=== PATIENT | female | born 2000 | race Caucasian/White ===

== ENCOUNTER 2022-06-01 13:48 | Outpatient (CLI) | payer BC, SELFPAY ==
--- NOTE | 2022-06-01 14:00 | CRLHL7_ITS ---
For Patients: As a result of the Century Cures Act, medical imaging exams and procedure reports are released immediately into your electronic medical record. You may view this report before your referring provider. If you have questions, please contact your health care provider. INDICATION: Evaluate for size and dates TECHNIQUE: Ultrasound OB pelvis transvaginal. Real time quan scale imaging of the pelvis was performed. COMPARISON: None FINDINGS: Sonographic imaging demonstrates a single living intrauterine gestation. The embryo demonstrates a regular cardiac rate measuring 161 beats per minute. The embryo`s crown rump length measurement of 1.9 cm corresponds to a gestational age of 8 weeks 3 days with a sonographic due date of 01/08/23. There is a normal appearing yolk sac. There are no gross abnormalities noted within the embryo at this early state of development. The placenta has not yet developed. The gestational sac has a normal appearance. Small perigestational hemorrhage. The amount of fluid within the sac appears appropriate for gestational age. The cervix is closed. The myometrium appears normal. The ovaries are of normal size. Normal left corpus luteal cyst there are no suspicious fluid collections noted in the cul-de-sac. IMPRESSION: Viable intrauterine . Gestational age calculated at 8 weeks 3 days with a sonographic due date of 01/08/2023. Small subchorionic hemorrhage. Dictated by Daniel Rashid MD @ 06/02/2022 12:13:03 PM (Electronically Signed)
== END 2022-06-01 13:49 | disposition home or self-care (01) ==
PROVIDERS: Visit Provider Registered Nurse
DX: Z34.81 Encounter for supervision of other normal pregnancy, first trimester (principal); Z3A.08 8 weeks gestation of pregnancy; Z36.87 Encounter for antenatal screening for uncertain dates; Z36.89 Encounter for other specified antenatal screening
CPT/HCPCS: 76817; 86592; 86703; 86762; 86787; 86803; 86850; 86900; 86901; 87086; 87340; 87491; 87591

== ENCOUNTER 2022-08-26 10:41 | Outpatient (CLI) | payer BC, SELFPAY ==
--- NOTE | 2022-08-26 14:00 | CRLHL7_ITS ---
For Patients: As a result of the Century Cures Act, medical imaging exams and procedure reports are released immediately into your electronic medical record. You may view this report before your referring provider. If you have questions, please contact your health care provider. INDICATION: Evaluate anatomy. COMPARISON: 06/01/2022 TECHNIQUE: Real time quan scale imaging of the fetus was performed as well as color Doppler analysis of the umbilical vessels. FINDINGS: Sonographic imaging demonstrates a single living intrauterine gestation. Fetus demonstrates a regular cardiac rate of 150 beats per minute. Fetus has a variable position. The placenta lies posteriorly without evidence of placenta previa. The edge of the placenta is located 6.6 cm from the internal cervical os. Amniotic fluid volume appears normal. Single deepest vertical pocket: 4.9 cm. The cervix is closed and measures 4.0 cm in length. The composite ultrasound gestational age is calculated at 20 weeks 5 days with an estimated sonographic due date of 01/08/2023. The estimated weight is 386 grams which lies at the 40th %. The following biometric measurements were obtained: Biparietal diameter: 4.8 cm/20 weeks 4 days 29th% Head circumference: 18.2 cm/20 weeks 4 days 23rd% Abdominal circumference: 15.9 cm/21 weeks 0 days 45th% Femur length: 3.5 cm/20 weeks 6 days 36th% The HC/AC ratio measures: 1.14 range (1.06-1.25) On anatomic survey, there is a normal appearance of the cerebral ventricles, cavum septi pellucidi, cisterna magna and cerebellum. The nose, lips, and facial profile appear normal. The cervical, thoracic and lumbar spine are well visualized and appear normal. There is a normal four-chamber heart view and the left and right ventricular outflow tracts appear normal. The diaphragm and stomach appear normal. The kidneys and bladder also appear normal. There is a normal three-vessel cord and cord insertion site. The four extremities appear normal. IMPRESSION: Normal OB ultrasound exam with concordance of clinical and sonographic dating. No intrinsic abnormalities noted on anatomic survey. Dictated by Daniel Kasper MD @ 08/26/2022 12:19:39 PM (Electronically Signed)
== END 2022-08-26 10:42 | disposition home or self-care (01) ==
LOC: US 10:42
PROVIDERS: Visit Provider Advanced Practice Midwife
DX: Z34.82 Encounter for supervision of other normal pregnancy, second trimester (principal); Z3A.21 21 weeks gestation of pregnancy
CPT/HCPCS: 76805

== ENCOUNTER 2022-10-21 13:25 | Outpatient (CLI) | payer BC, SELFPAY ==
[2022-10-24 01:21] LABS: Rapid Plasma Reagin (RPR) Non Reactive (Non Reactive)
== END 2022-10-21 13:26 | disposition home or self-care (01) ==
LOC: NFLDREF 13:26
PROVIDERS: Visit Provider Advanced Practice Midwife
DX: Z34.93 Encounter for supervision of normal pregnancy, unspecified, third trimester (principal); Z3A.29 29 weeks gestation of pregnancy
CPT/HCPCS: 86592

== ENCOUNTER 2022-11-11 11:05 | Outpatient (CLI) | payer BC, SELFPAY | END 2022-11-11 11:06 | disposition home or self-care (01) | PROVIDERS: Visit Provider Advanced Practice Midwife | DX: Z34.93 Encounter for supervision of normal pregnancy, unspecified, third trimester (principal); Z3A.32 32 weeks gestation of pregnancy | CPT/HCPCS: 87086 ==

== ENCOUNTER 2022-11-15 13:46 | Outpatient (CLI) | payer BC, SELFPAY ==
--- NOTE | 2022-11-15 14:00 | CRLHL7_ITS ---
For Patients: As a result of the Century Cures Act, medical imaging exams and procedure reports are released immediately into your electronic medical record. You may view this report before your referring provider. If you have questions, please contact your health care provider. INDICATION: Third trimester scan, evaluate growth. Small for dates. COMPARISON: 08/26/2022 TECHNIQUE: Real time quan scale imaging of the fetus was performed. FINDINGS: Sonographic imaging demonstrates a single living intrauterine gestation. Fetus demonstrates a regular cardiac rate of 139 beats per minute. Fetus has a vertex position. The placenta lies anteriorly. Amniotic fluid volume appears normal and there is a single deepest vertical pocket: 5.3 cm. The estimated weight is 1915gm which lies at the 28th %. On the prior OB ultrasound exam dated 08/26/2022 the estimated weight was at the 40th%. BPD 24th percentile. HC 37th percentile. AC 31st percentile. FL 26th percentile. The HC/AC ratio measures 1.08 range (0.96-1.13). IMPRESSION: Sonographic gestational age 32 weeks 3 days and sonographic due date of 01/07/2023. Good correlation with dates. Normal interval growth. Estimated weight 28th percentile. Abdominal circumference 31st percentile. Dictated by Daniel Kasper MD @ 11/16/2022 9:06:24 AM (Electronically Signed)
== END 2022-11-15 13:47 | disposition home or self-care (01) ==
LOC: US 13:46
PROVIDERS: Visit Provider Advanced Practice Midwife
DX: O36.5930 Maternal care for other known or suspected poor fetal growth, third trimester, not applicable or unspecified (principal); Z3A.32 32 weeks gestation of pregnancy
CPT/HCPCS: 76816

== ENCOUNTER 2022-12-08 17:28 | Outpatient (CLI) | payer BC, SELFPAY ==
[2022-12-08 17:42] VITALS: BP 118/70; PULSE 92; RESP 18; TEMP 36.4; O2SAT 100
[2022-12-08 18:15] LABS: Amnisure Rom* Negative
[2022-12-08 18:44] LABS: Clue Cells No Clue Cells Seen (None Seen); Trichomonas No Trichomonas Seen (None Seen); Yeast No Yeast Seen (None Seen)
--- NOTE | 2022-12-08 19:39 | PC.OBNST ---
NST Note NST Note Start: 12/08/22 17:41 Freq: ONCE Status: Active Protocol: Document 12/08/22 19:10 [facility] (Rec: 12/08/22 19:39 [facility] [id number]) NST Note 3 Para (# of births) 1 EDC 01/06/23 Gestational Age In Weeks & Days 35 Weeks & 6 Days Patient Presented with Complaint(s) of Leaking fluid Reactive Yes RN Connie Salas RN Date 12/08/22 Reactive Yes RN Michelle Carnes RN Date 12/08/22 OB NST charge Yes Complete NST Note via Write Note Yes The provider's electronic signature indicates the NST is reactive/appropriate for gestational age. *Note to provider: If an addendum is required, open the patient's chart and click on the note under the Nurse/Allied Health tab.
== END 2022-12-08 18:07 | disposition home or self-care (01) ==
LOC: OB OUT 17:28 → OB 18:54
PROVIDERS: Visit Provider Advanced Practice Midwife
DX: O47.03 False labor before 37 completed weeks of gestation, third trimester (principal); Z3A.35 35 weeks gestation of pregnancy
CPT/HCPCS: 59025; 84112; 87210; 99213

== ENCOUNTER 2022-12-10 10:38 | Outpatient (CLI) | payer BC, SELFPAY | END 2022-12-10 10:39 | disposition home or self-care (01) | LOC: NFLDREF 12-11 08:03 | PROVIDERS: Visit Provider Advanced Practice Midwife | DX: Z34.93 Encounter for supervision of normal pregnancy, unspecified, third trimester (principal); Z3A.36 36 weeks gestation of pregnancy | CPT/HCPCS: 87081; 87653 ==

== ENCOUNTER 2023-01-03 12:58 | Outpatient (CLI) | payer BC, SELFPAY ==
--- NOTE | 2023-01-03 13:00 | CRLHL7_ITS ---
For Patients: As a result of the Century Cures Act, medical imaging exams and procedure reports are released immediately into your electronic medical record. You may view this report before your referring provider. If you have questions, please contact your health care provider. INDICATION: SIZE SMALL FOR DATES COMPARISON: 11/15/2022 TECHNIQUE: Real time quan scale imaging of the fetus was performed. FINDINGS: Sonographic imaging demonstrates a single living intrauterine gestation. Fetus demonstrates a regular cardiac rate of 125 beats per minute. Fetus has a vertex position. The placenta lies anteriorly. Amniotic fluid volume appears normal and there is a single deepest vertical pocket: 6.4 cm. The estimated weight is 3470gm which lies at the 44th %. On the prior OB ultrasound exam dated 11/15/2022 the estimated weight was at the 28th%. BPD 27th percentile. HC 26th percentile. AC 45th percentile. FL 30th percentile. The HC/AC ratio measures 0.98 range (0.89-1.06). IMPRESSION: Sonographic gestational age 38 weeks 2 days and sonographic due date 01/15/2023. Sonographic age 9 days behind the clinical age. Estimated weight 44th percentile. Abdominal circumference 45th percentile. Dictated by Daniel Kasper MD @ 01/03/2023 1:45:43 PM (Electronically Signed)
== END 2023-01-03 12:59 | disposition home or self-care (01) ==
LOC: US 12:58
PROVIDERS: Visit Provider Advanced Practice Midwife
DX: O36.5930 Maternal care for other known or suspected poor fetal growth, third trimester, not applicable or unspecified (principal); Z3A.38 38 weeks gestation of pregnancy
CPT/HCPCS: 76816

== ENCOUNTER 2023-01-12 06:13 | Inpatient (IN) | payer BC, SELFPAY ==
[2023-01-12] VITALS (16 sets, daily range): BP systolic 102–116; BP diastolic 55–82; PULSE 78–121; RESP 16–20; TEMP 36.5–37.2; O2SAT 97–100; BMI 22.7
--- NOTE | 2023-01-12 06:18 | P.LDBA_ITS ---
Subjective History of Present Illness Narrative: Patient is being admitted to Labor and Delivery for []. She is a 22 year old at weeks gestation. Her full history and physical was dictated by [] on []. Please see this for details. [] Comments: Sarika is being admitted to Labor and Delivery for early labor. She is a 22 year old G 3 P 1 at?40.6 weeks gestation. Her full history and physical was dictated by Alexis Ochoa on 12/17/22. Please see this for details. She states ctx started 2 nights ago, but remained fairly spaced out at 10-15 mins. She was able to take a bath and sleep. Ctx resumed yesterday morning, but remained spaced out. Yesterday evening they began increasing in intensity and becoming closer together. She is coping well with labor pain/contractions, but admits to being tired from not sleeping much last night. Her partner and mirror finishing machine operator are with her for support. She is planning an unmedicated . Desires a waterbirth. OB Problem List: 1. DIAMANTE 2.0 x 0.6 x 0.6 cm. 2. Measuring small for dates at 32 weeks. Growth u/s ordered: 28%ile, normal growth since anatomy scan Growth ordered at 38 wks: OB - Problem Based A/P Additional Plan (1) Uterine contractions: Status: Acute Plan at 40.6 weeks GBS negative Early labor complicated by -Measuring small for dates. EFW 44%, 7 lb 10 oz at 39.4 wks Labor complicated by: -irregular heartbeat - skipped beat audible every few minutes 1. Admit to L & D for early labor, IOL if needed 2. Pt scheduled for IOL tomorrow. Will monitor for progress with expectant management, but she is agreeable to augmentation if needed. 3. Candidate for analgesia of choice. Planning unmedicated . 4. Desires waterbirth, consent signed and Hep C negative 5. Does not require IV access at this time 6. Intermittent monitoring per protocol at this time 7. Will continue to monitor arrhythmia, consult or peds if needed. 8. Baby previously noted in OP position during visits. Encouraged to move to promote labor progress and optimal positioning. 9. Anticipate progress to NVD. Delivery/Labor/Induction Plan Plan: expectant management OB Exam Physical Exam Vital signs: Pulse BP Pulse Ox 90 112/71 98 01/12/23 05:37 01/12/23 05:37 01/12/23 05:38 Narrative: VSS, afebrile? General Appearance:? Calm, cooperative.? No acute distress.? Normal affect.? Psychiatric Exam: Alert and oriented, appropriate affect? HEENT: normocephalic, neck supple, full ROM? Respiratory:? Symmetrical chest wall movement.? Normal respiratory effort.? Clear to auscultation? Cardiac:? regular rate and rhythm? Abdomen: Gravid, non tender? Extremities:? normal and trace edema? Skin: warm, dry.??? Ctx:? Q 6-7 min apart.? Mild? ? ? FHTs:? Baseline: 125.? Variability: moderate.?? Accels: present.??? Decels:? none.? SVE: 1-2/75/-2 per RN? Membranes: intact? Detailed Labor and Delivery Exam Patient Gravid: Yes
--- NOTE | 2023-01-12 08:41 | PM.OBPNL ---
Subjective Date Seen: 01/12/23 Narrative: Sarika feels that contractions have slowed down since coming to the hospital. She did have one contraction when i was present that she grimaced with and stated that was more painful than the last few. She did start the labor warmup circuit but stopped to eat breakfast. After a discussion with Sarika, her partner, and physician practice manager she would like to finish eating and try to take a nap this morning. She would like to reevaluate around noon if we should do any interventions to try to get labor going stronger. Denies questions or concerns at this time. Objective Vital Signs: Last Vital Signs Temp 98 F 01/12/23 08:10 Pulse 93 01/12/23 08:11 Resp 18 01/12/23 08:10 BP 116/57 L 01/12/23 08:11 Pulse Ox 97 01/12/23 08:10 Contractions Monitor mode: Palpation Contraction Frequency: 5-10min Contraction pattern: Irregular Contraction intensity: Mild Assessment Tracing Comments: RN dopplering FHTs. Plan Plan: Continue with expectant management. Intermittent auscultation per policy.
--- NOTE | 2023-01-12 14:39 | PM.OBPNL ---
Subjective Date Seen: 01/12/23 Narrative: Sarika is requesting a SVE to determine progress. She feels her contractions are still spaced out but a little more painful. Baby is very low but 2cm/80%. She would like to continue with position changes and reevaluate in a few hours and decide then if she would like augmentation or expectant management. Objective Vital Signs: Last Vital Signs Temp 97.8 F 01/12/23 12:01 Pulse 88 01/12/23 12:01 Resp 16 01/12/23 12:01 BP 108/61 01/12/23 12:01 Pulse Ox 97 01/12/23 08:10 Pelvic Exam Dilation (cm): 2 Effacement (%): 80 Station: -1 Contractions Monitor mode: Palpation Contraction pattern: Irregular Contraction intensity: Mild
[2023-01-12] MEDS: LIDOCAINE 1 % PF 30 ML INJECTION (22:30)
--- NOTE | 2023-01-12 23:35 | W.PM.OBVAGDE ---
OB Procedure Vag Delivery Mother Details Mother Details: The patient is a 22 year-old, 3, now Para 2, admitted on 01/12/23 at 40.6 Days gestation. : 3 Para: 2 Weeks Gestation: 40.6 Admission Date: 01/12/23 Additional Details Amniotic Membrane Status: SROM Amniotic Membrane Rupture Date: 01/12/23 Amniotic Membrane Rupture Time: 22:06 (ruptured with delivery of the baby) Amniotic Membrane Fluid Description: Clear Analgesia/Anesthesia Type: None Waterbirth: Yes Pitcoin: No Intrapartal Events: None Labor Onset: 18:30 Complete: 21:30 Pushin:30 Heart: heart tones during second stage were dopplered 120-130 with accelerations heard. Decelerations heard to the 110's with some contractions. An occasional dropped beat was hear with auscultation. Delivery Details Delivery Date: 01/12/23 Delivery Time: 22:06 Route of delivery: Infant Gender: Female Infant Viability: Alive; Heart Rate Present Position at Delivery: OA Delivery Details: At 2206 a viable female infant delivered in vertex OA presentation over intact perineum via spontaneous vaginal delivery.? was placed on maternal abdomen.? Cord was clamped and cut after a 2-3 minute delay.?Cord was cut at this time due to a gush of blood noted in the tub and concerns of placenta delivery in the tub. Nose and mouth were bulb suctioned.? Infant weight 7lb 10oz.? 7 at 1 minute and 8 at 5 minutes.? Shoulder dystocia: no.? Nuchal cord: no.?Loose body cord x1. ?? Placenta delivered spontaneously and complete at 2240 with a 3 vessel cord.?There were significant trailing membranes that took around 5 minutes to deliver. They did feel to deliver complete but unable to confirm with inspection of the placental membranes. 1 Minute Interval Total Score: 7 5 Minute Interval Total Score: 8 Additional Details Shoulder Dystocia: No Placenta Delivery Time: 22:40 Placental Delivery Description: Spontaneous Delivery repair: Vicryl Procedure Done: Global Blood Loss: 500 Laceration: Perineal - 2nd Degree Episiotomy Description: None Blood Loss Measurement Type: QBL (200QBL in the drape and 300 EBL in the tub) Bakri Used: No Sponge/Need Count Correct: Yes Cord Vessel Description: 3 Vessels, Loose and Around Body Event Summary Status: Mother and were stable after delivery. Disposition: floor
[2023-01-13] VITALS (8 sets, daily range): BP systolic 94–110; BP diastolic 58–65; PULSE 75–96; RESP 16–18; TEMP 36.3–37.1; O2SAT 97
[2023-01-13] MEDS: IBUPROFEN 600 MG TABLET PO ×4 (01:18→22:14)
[2023-01-13] MEDS: ACETAMINOPHEN 500 MG TABLET 1000 MG PO ×3 (04:40→18:24)
[2023-01-13 07:02] LABS: Hemoglobin* 12.5 gm/dL (12.0-16.0)
--- NOTE | 2023-01-13 10:05 | PM.OBPNVD1 ---
OB - PN:Subj Subjective Date Seen: 01/13/23 Narrative: Sarika is a 22 y.o. who was admitted to L & D for spontaneous onset. ?She had an uncomplicated NVD.?The patient feels well. ?The pain is well controlled with current medications. ?She has no new complaints. ?She is breast feeding and reports things are going well.? the patient has done well.? Vitals have been stable.? She has remained afebrile.? Has a good appetite, is tolerating a general diet. ?She is voiding without difficulty.? She is passing gas and has not had a bowel movement.? She is ambulating and denies any dizziness.? Has Small amount of rubra lochia. OB - PN: Obj Exam Physical Exam: Vital signs: Temp Pulse Resp BP Pulse Ox O2 Del Method 97.4 F L 75 18 97/64 97 Room Air 01/13/23 08:17 01/13/23 08:17 01/13/23 08:17 01/13/23 08:17 01/13/23 04:26 01/13/23 08:17 Narrative: GENERAL APPEARANCE:? normal affect, alert, no distress MOOD:? appropriate CHEST:? clear to auscultation HEART:? regular rate and rhythm ABDOMEN:? soft, non-tender the uterine fundus is at Umbilicus, Midline and is appropriate for the stage of recovery. PERINEUM:? mild edema of the perineum, there is a Perineal Laceration,? 2nd degree, that is healing well. EXTREMITIES:? normal and no edema OB - PN: Obj Data Labs Labs: Laboratory Results - last 24 hr 01/13/23 06:50 Hgb 12.5 OB - PN: A/P Vaginal Delivery Assessment and Plan (1) care and examination immediately after delivery: Status: Acute (2) Lactating mother: Status: Acute Plan day: 1 Plan: routine care Comments: Lactating Mother, may see if desired. Anticipate discharge tomorrow.
[2023-01-13] MEDS: DOCUSATE SODIUM 100 MG CAPSULE PO (11:18)
[2023-01-14] MEDS: IBUPROFEN 600 MG TABLET PO (04:17)
--- NOTE | 2023-01-14 07:36 | P.DS_ITS ---
DS: Providers Provider Date Seen: 01/14/23 Date of admission: 01/12/23 06:13 Primary care physician: Not a Local Provider Admitting Clinician: Nadira Ray CNM Attending Physician on discharge: Nadira Ray CNM Date of Discharge: 01/14/23 DS: Diagnosis Discharge Diagnosis (1) examination following vaginal delivery: Status: Acute (2) Lactating mother: Status: Acute Exam Narrative: Exam Narrative: GENERAL APPEARANCE:? normal affect, alert, no distress? MOOD:? appropriate? CHEST:? clear to auscultation and percussion? HEART:? regular rate and rhythm? ABDOMEN:? soft, non-tender the uterine fundus is U/2 and is appropriate for the stage of recovery.? PERINEUM:? mild edema of the perineum, there is a 2nd degree laceration that is healing well.? EXTREMITIES:? normal and no edema? Const: Vital Signs, click to edit/add: Vital Signs - 24 hr 01/13/23 08:17 01/13/23 12:15 01/13/23 16:10 Temperature 97.4 F L 97.8 F 98 F Pulse Rate [Blood Pressure Cuff] 75 94 92 Respiratory Rate 18 16 18 Blood Pressure [Le ft Arm] 97/64 95/60 94/59 L Oxygen Delivery Me thod Room Air Room Air Room Air 01/13/23 19:14 01/13/23 23:48 Temperature 97.6 F 97.9 F Pulse Rate [Blood Pressure Cuff] 96 81 Respiratory Rate 16 16 Blood Pressure [Le ft Arm] 98/62 94/58 L Oxygen Delivery Me thod Room Air Room Air OB - DS: Summary Hospital Course Hospital Course: Patient is a 22year old, G 3 now P 2? admitted on 01/12/23 at 40 Weeks, 6 Days gestation for labor.? She had an uncomplicated vaginal delivery.? She delivered a viable female infant.? She is breast feeding and reports things are well.? the patient has done well.? Her pain is well controlled with current medications.? She has no new complaints.? Vitals have been stable. She has remained afebrile. She is voiding without difficulty. She is passing gas and has not had a bowel movement. She is ambulating and denies any dizziness. She is planning condoms for control.??? Peripartum Data delivery method: Vaginal Laceration description: Perineal - 2nd Degree Episiotomy description: None complications: none [place] Infant Gender: Female Discharge Plan: Home Status at Discharge Functional status at discharge: independent ambulation Overall status at discharge: patient is progressing back to baseline Time Spent with Patient Time attestation: Total time spent providing and/or coordinating discharge services: Discharge Plan Discharge Disposition: Home, Self-Care Date of Admission: 01/12/23 06:13 Attending Provider on Discharge: Celsa Rapp Primary Care Provider: Provider,Not a Local Condition: Stable Anticipated Discharge Date/Time: 01/14/23 10:00 Discharge Medications: New docusate sodium 100 mg Capsule 100 mg PO DAILY Qty: 60 0RF Rx Instructions: Take 1-2 tablets daily as needed for constipation. ibuprofen 600 mg Tablet 600 mg PO Q6H PRNQty: 30 0RF Continued prenat.vits,judy,uzq-dwat-slujv Tablet 1 tab PO QDAY clotrimazole [Lotrimin AF (clotrimazole)] 1 % cream 1 applic topical TID Discharge Orders: Discharge Order (Routine); Ordered 01/14/23 Ordered By: Celsa Rapp Additional Instructions: Discharge instructions were reviewed with the patient including signs and symptoms of infection and home going medications.? Lifting Restrictions: 20 pounds for 6? weeks? ?? Do not drive while taking narcotic pain meds.? Off Work or School for 6 weeks.? ?? Symptoms to report to doctor:? -Bleeding that saturates more than one pad per hour? -Passing clots larger than the size of a golf ball? -Pain not relieved by prescribed medication? -Fever above 100.4 degrees Fahrenheit? -A foul vaginal odor? -Difficulty in emotions, mood and functions? -Thoughts of hurting yourself and/or ? -Painful, reddened area in your breast? -Any drainage, redness or tenderness in your IV/epidural site? -Severe headache that doesn't improve after taking medications? -Changes in vision, including temporary loss of vision, blurred vision, and/or light sensitivity? -Upper abdominal pain (usually under ribs on the right side)? -Decrease in urination or painful, frequent urinating? -Chest pain? -Shortness of breath? -Tenderness or pain with redness and/swelling in the calf(s) of your leg? ?? Follow Up in clinic in 2 and 6 weeks.? ?? consultation services are available to all mothers and babies for the first year after delivery.? To make an appointment, please call [phone].? Activity Level: Activity as Tolerated Discharge Diet: Regular Follow Up Appointments: Provider,Not a Local [Primary Care Provider] - [facility] [Provider Group] Forms: MyHealth Info Instructions
[2023-01-14 09:00] VITALS: BP 97/64; PULSE 81; RESP 18; TEMP 36.6
== END 2023-01-14 11:20 | disposition home or self-care (01) | DRG 560 ==
LOC: OB 08:23
PROVIDERS: Advanced Practice Midwife; Admitting Provider Advanced Practice Midwife; Visit Provider Advanced Practice Midwife
DX: O70.1 Second degree perineal laceration during delivery (principal); Z3A.40 40 weeks gestation of pregnancy; Z37.0 Single live birth
CPT/HCPCS: 36415; 85018; 99211; 99213; A9270; J2001

== ENCOUNTER 2025-08-12 16:42 | Outpatient (CLI) | payer BC, SELFPAY ==
--- NOTE | 2025-08-12 16:45 | CRLHL7_ITS ---
For Patients: As a result of the Century Cures Act, medical imaging exams and procedure reports are released immediately into your electronic medical record. You may view this report before your referring provider. If you have questions, please contact your health care provider. ULTRASOUND OB PELVIS FIRST TRIMESTER TRANSVAGINAL LMP: 06/07/2025. KAMLESH by LMP: 03/14/2026. GA: 9w, 3d. INDICATION: Dating and viability. CRL: Not visualized. FHR: Not detected. GESTATIONAL SAC: 3.3 cm. YOLK SAC: Not visualized. RIGHT OVARY: 2.8 x 1.5 x 2.5 cm. LEFT OVARY: 4.1 x 2.5 x 3.4 cm. CL. IMPRESSION: 1. Intrauterine gestational sac is present which measures 3.3 cm. No yolk sac or pole. Findings consistent with an embryonic gestation. 2. Subchorionic hemorrhage measures 5.3 x 1.1 x 1.0 cm. 3. Incidental corpus luteal cyst left ovary measures 1.9 x 2.6 x 2.5 cm. Daniel Kasper M.D. Diagnostic Radiologist [email or web address] bM/Dictated by: Daniel Kasper MD @ 08/12/2025 8:21:00 PM (Electronically Signed)
== END 2025-08-12 16:43 | disposition home or self-care (01) ==
LOC: US 16:42
PROVIDERS: Visit Provider Physician Assistant
DX: O20.9 Hemorrhage in early pregnancy, unspecified (principal); O34.81 Maternal care for other abnormalities of pelvic organs, first trimester; N83.12 Corpus luteum cyst of left ovary; Z3A.09 9 weeks gestation of pregnancy
CPT/HCPCS: 76817

== ENCOUNTER 2025-08-21 06:13 | Day surgery (SDC) | payer BC, SELFPAY ==
[2025-08-21] VITALS (7 sets, daily range): BP systolic 100–130; BP diastolic 58–67; PULSE 67–81; RESP 12–16; TEMP 36.4–36.9; O2SAT 99–100; BMI 21.9
[2025-08-21] MEDS: SODIUM CHLORIDE 0.9 % (FLUSH) 10 ML SYRINGE IVF (06:50)
[2025-08-21] MEDS: LACTATED RINGERS 1000 ML 1,000 ML 100 ML IV (06:55)
[2025-08-21] MEDS: DOXYCYCLINE HYCLATE 200 MG in 0.9 % SODIUM CHLORIDE 250 ml 250 ML 250 MG IVPB (07:15)
--- NOTE | 2025-08-21 07:41 | W.PM.GYNPROC ---
Procedure Note Date of procedure: 08/21/25 Will [facility] bill your pro fee for this procedure?: Yes Pre-op diagnosis: 1. Anembryonic . Post-op diagnosis: 1. Anembryonic . Procedure: Suction curettage Anesthesia: MAC and local (Paracervical block) Complications: None. Surgeon: Wen James Estimated blood loss (mL): 10 Pathology: specimen obtained, sent to pathology (Produsts of conception) Condition: stable Disposition: same day Procedure Description: After obtaining informed consent, the patient was taken to the operating room where she received monitored anesthesia care. She was prepared and draped in the normal, sterile fashion in the dorsal lithotomy position. Two hundred mg of IV doxycycline was administered intravenously. An examination was performed under anesthesia which demonstrated a normal sized anteverted uterus. An open-sided bivalve speculum was placed into the vagina and the cervix easily visualized. The anterior lip of the cervix was grasped with a single-tooth tenaculum for traction. A paracervical block was administered using a total of 20 mL of a 50:50 mixture of 1% lidocaine and 0.25% Marcaine, plain. A sound was gently inserted through the cervical os into the uterus to the level of the fundus. Sound length was 10 cm. The cervix was gently dilated using Hegar dilators to a # 10 dilator. A 10 mm rigid, curved suction cannula was advanced through the cervical os into the uterine cavity. Gentle suction was applied, and the uterine lining gently curetted. A moderate amount of products of conception and blood was removed. The suction cannula was removed. The uterine lining was gently explored using a sharp curette, which removed a small amount of tissue from the right posterior uterine cavity. Another pass was made with the suction cannula and gentle exploration was again done with the sharp curette and a gritty feel was felt throughout. One final pass was made with the suction cannula, no further tissue was recovered. All instruments were then removed. 0.2 mg IM Methergine was administered to ensure uterine contraction. 30 mg IV Toradol was administered for pain control. The patient tolerated the procedure well. Sponge, lap, and needle counts were reported as correct x2. The patient was taken to the recovery room awake and in stable condition.
[2025-08-21] MEDS: LIDOCAINE 1% MDV 20 ML INJECTION (07:55)
[2025-08-21] MEDS: BUPIVACAINE 0.25% 30 ML INJECTION (07:55)
--- NOTE | 2025-08-21 08:17 | P.ANES_ITS ---
Anesthesia Charges Start Date/Time Anesthesia Start Date: 08/21/25 Anesthesia Start Time: 07:28 Stop Date/Time Anesthesia Stop Date: 08/21/25 Anesthesia Stop Time: 08:17 Coding CPT Codes CPT Codes: ANESTH INC/MISSED AB PROC - [id number] ([id number]) P1 - NORMAL HEALTHY PATIENT, QK - PLANT PROPAGATOR 2-4 CNCRNT ANEFrancisca PROC, QX - QUALITY CONTROL ENGINEER SVOren W/ MED DIRECTION
--- NOTE | 2025-08-21 08:17 | W.ANESCHARGE ---
Anesthesia Charges Start Date/Time Anesthesia Start Date: 08/21/25 Anesthesia Start Time: 07:28 Stop Date/Time Anesthesia Stop Date: 08/21/25 Anesthesia Stop Time: 08:17 Coding CPT Codes CPT Codes: ANESTH INC/MISSED AB PROC - [id number] ([id number]) P1 - NORMAL HEALTHY PATIENT, QK - COUNTER CHECKER 2-4 CNCRNT ANEFrancisca PROC, QX - AQUATICS LIFEGUARD SVOren W/ MED DIRECTION
--- NOTE | 2025-08-21 09:17 | P.ANES_ITS ---
Anesthesia Charges Start Date/Time Anesthesia Start Date: 08/21/25 Anesthesia Start Time: 07:28 Stop Date/Time Anesthesia Stop Date: 08/21/25 Anesthesia Stop Time: 08:17 Coding CPT Codes CPT Codes: ANESTH INC/MISSED AB PROC - [id number] ([id number]) P1 - NORMAL HEALTHY PATIENT, QK - CYBER INCIDENT RESPONDER 2-4 CNCRNT ANEFrancisca PROC, QX - PHOTOGRAPHIC LABORATORY TECHNICIAN SVOren W/ MED DIRECTION
--- NOTE | 2025-08-21 09:17 | W.ANESCHARGE ---
Anesthesia Charges Start Date/Time Anesthesia Start Date: 08/21/25 Anesthesia Start Time: 07:28 Stop Date/Time Anesthesia Stop Date: 08/21/25 Anesthesia Stop Time: 08:17 Coding CPT Codes CPT Codes: ANESTH INC/MISSED AB PROC - [id number] ([id number]) P1 - NORMAL HEALTHY PATIENT, QK - TAIL TRIMMER 2-4 CNCRNT ANEFrancisca PROC, QX - QUALITY IMPROVEMENT SPECIALIST SVOren W/ MED DIRECTION
== END 2025-08-21 09:45 | disposition home or self-care (01) ==
LOC: OR 06:13
PROVIDERS: Visit Provider Obstetrics & Gynecology
PROC: (CPT 59820; principal; 2025-08-21 07:30)
DX: O02.0 Blighted ovum and nonhydatidiform mole (principal)
CPT/HCPCS: 59820; 01965; 88305; J2003; J0665; J1100; J1885; J2210; J2250; J2405; J2704; J3490; J7050; J7120